=== PATIENT | male | born 2000 | race African-American/Black ===

== ENCOUNTER 2022-08-06 23:55 | Emergency (ER) | payer SELFPAY ==
[~2022-08-06] VITALS: Ht 188 cm; Wt 83.9 kg
[2022-08-07 01:11] VITALS: BP 149/89
--- NOTE | 2022-08-07 04:13 | NUR ---
PT TO CHAIR C
[2022-08-07] MEDS ORDERED: HYDROcodone/APAP 5/325 MG 1 TAB TAB PO ONE (04:55)
[2022-08-07] MEDS ORDERED: ACET-8905 PO (05:02)
[2022-08-07] MEDS ORDERED: NAPR-54 PO (05:02)
--- NOTE | 2022-08-07 05:06 | NUR ---
PER IF PT IS DRIVING SELF DO NOT ADMINISTERED NORCO 5/325. PT REPORTED HE WILL BE DRIVING SELF, NORCO NON-ADMINISTERED
--- NOTE | 2022-08-07 05:11 | NUR ---
Patient discharged with v/s stable. Written and verbal after care instructions given and explained. Patient alert, oriented and verbalized understanding of instructions. Ambulatory with steady gait. All questions addressed prior to discharge. ID band removed. Patient advised to follow up with PMD. Rx of NAPROXEN AND NORCO given. Patient educated on indication of medication including possible reaction and side effects. Opportunity to ask questions provided and answered.
== END 2022-08-07 05:11 | disposition home or self-care (01) ==
LOC: MED 23:55
DX: M67.834 Other specified disorders of tendon, left wrist (principal)
CPT/HCPCS: 73110; 99283